=== PATIENT | female | born 1940 | race Caucasian/White ===

== ENCOUNTER 2020-05-19 08:50 | Outpatient (CLI) | payer MEDICARE | END 2020-05-19 08:51 | disposition home or self-care (01) | LOC: CSHWCC 08:50 | PROVIDERS: ATTEND Nurse Practitioner Family | DX: L97.822 Non-pressure chronic ulcer of other part of left lower leg with fat layer exposed (principal); L97.823 Non-pressure chronic ulcer of other part of left lower leg with necrosis of muscle; R60.0 Localized edema; L59.8 Other specified disorders of the skin and subcutaneous tissue related to radiation; E78.2 Mixed hyperlipidemia; F33.9 Major depressive disorder, recurrent, unspecified; I10 Essential (primary) hypertension; L08.89 Other specified local infections of the skin and subcutaneous tissue; B96.89 Other specified bacterial agents as the cause of diseases classified elsewhere; Y84.2 Radiological procedure and radiotherapy as the cause of abnormal reaction of the patient, or of later complication, without mention of misadventure at the time of the procedure; Z85.828 Personal history of other malignant neoplasm of skin | CPT/HCPCS: 29581; 97605 ==

== ENCOUNTER 2020-05-21 10:19 | Outpatient (CLI) | payer MEDICARE | END 2020-05-21 10:20 | disposition home or self-care (01) | LOC: CSHWCC 10:19 | PROVIDERS: ATTEND Nurse Practitioner Family | DX: L97.822 Non-pressure chronic ulcer of other part of left lower leg with fat layer exposed (principal); L97.823 Non-pressure chronic ulcer of other part of left lower leg with necrosis of muscle; R60.0 Localized edema; E78.2 Mixed hyperlipidemia; F33.9 Major depressive disorder, recurrent, unspecified; I10 Essential (primary) hypertension; L08.89 Other specified local infections of the skin and subcutaneous tissue; B96.89 Other specified bacterial agents as the cause of diseases classified elsewhere; L59.8 Other specified disorders of the skin and subcutaneous tissue related to radiation; Y84.2 Radiological procedure and radiotherapy as the cause of abnormal reaction of the patient, or of later complication, without mention of misadventure at the time of the procedure; Z85.828 Personal history of other malignant neoplasm of skin | CPT/HCPCS: 29581; 97605; 99213; G0463 ==

== ENCOUNTER 2020-05-25 14:35 | Outpatient (CLI) | payer MEDICARE | END 2020-05-25 14:36 | disposition home or self-care (01) | LOC: CSHWCC 14:35 | PROVIDERS: ATTEND Nurse Practitioner Family | DX: L97.822 Non-pressure chronic ulcer of other part of left lower leg with fat layer exposed (principal); L97.823 Non-pressure chronic ulcer of other part of left lower leg with necrosis of muscle; R60.0 Localized edema; E78.2 Mixed hyperlipidemia; F33.9 Major depressive disorder, recurrent, unspecified; I10 Essential (primary) hypertension; L08.89 Other specified local infections of the skin and subcutaneous tissue; B96.89 Other specified bacterial agents as the cause of diseases classified elsewhere; T66.XXXA Radiation sickness, unspecified, initial encounter; Y84.2 Radiological procedure and radiotherapy as the cause of abnormal reaction of the patient, or of later complication, without mention of misadventure at the time of the procedure; Z85.828 Personal history of other malignant neoplasm of skin | CPT/HCPCS: 29581; 99213; G0463 ==

== ENCOUNTER 2020-05-26 10:47 | Outpatient (CLI) | payer MEDICARE | END 2020-05-26 10:48 | disposition home or self-care (01) | LOC: CSHWCC 10:47 | PROVIDERS: ATTEND Nurse Practitioner Family | DX: L97.823 Non-pressure chronic ulcer of other part of left lower leg with necrosis of muscle (principal); R60.0 Localized edema; L59.8 Other specified disorders of the skin and subcutaneous tissue related to radiation; E78.2 Mixed hyperlipidemia; F33.9 Major depressive disorder, recurrent, unspecified; I10 Essential (primary) hypertension; Y84.2 Radiological procedure and radiotherapy as the cause of abnormal reaction of the patient, or of later complication, without mention of misadventure at the time of the procedure; Z85.828 Personal history of other malignant neoplasm of skin | CPT/HCPCS: 29581; 99213; G0463 ==

== ENCOUNTER 2020-05-27 15:11 | Outpatient (CLI) | payer MEDICARE | END 2020-05-27 15:12 | disposition home or self-care (01) | LOC: CSHWCC 15:11 | PROVIDERS: ATTEND Nurse Practitioner Family | DX: L97.823 Non-pressure chronic ulcer of other part of left lower leg with necrosis of muscle (principal); L59.8 Other specified disorders of the skin and subcutaneous tissue related to radiation; R60.0 Localized edema; E78.2 Mixed hyperlipidemia; F33.9 Major depressive disorder, recurrent, unspecified; I10 Essential (primary) hypertension; Y84.2 Radiological procedure and radiotherapy as the cause of abnormal reaction of the patient, or of later complication, without mention of misadventure at the time of the procedure; Z85.828 Personal history of other malignant neoplasm of skin | CPT/HCPCS: 29581; 99213; G0463 ==

== ENCOUNTER 2020-05-28 08:54 | Outpatient (CLI) | payer MEDICARE | END 2020-05-28 08:55 | disposition home or self-care (01) | LOC: CSHWCC 08:54 | PROVIDERS: ATTEND Nurse Practitioner Family | DX: L97.822 Non-pressure chronic ulcer of other part of left lower leg with fat layer exposed (principal); L97.823 Non-pressure chronic ulcer of other part of left lower leg with necrosis of muscle; R60.0 Localized edema; E78.2 Mixed hyperlipidemia; F33.9 Major depressive disorder, recurrent, unspecified; I10 Essential (primary) hypertension; L08.89 Other specified local infections of the skin and subcutaneous tissue; B96.89 Other specified bacterial agents as the cause of diseases classified elsewhere; L56.8 Other specified acute skin changes due to ultraviolet radiation; Y84.2 Radiological procedure and radiotherapy as the cause of abnormal reaction of the patient, or of later complication, without mention of misadventure at the time of the procedure; Z85.828 Personal history of other malignant neoplasm of skin | CPT/HCPCS: 29581; 97139; G0463; 99213 ==

== ENCOUNTER 2020-05-31 12:22 | Outpatient (CLI) | payer MEDICARE | END 2020-05-31 12:23 | disposition home or self-care (01) | LOC: CSHWCC 12:22 | PROVIDERS: ATTEND Nurse Practitioner Family | DX: L97.823 Non-pressure chronic ulcer of other part of left lower leg with necrosis of muscle (principal); E78.2 Mixed hyperlipidemia; F33.9 Major depressive disorder, recurrent, unspecified; I10 Essential (primary) hypertension; L59.8 Other specified disorders of the skin and subcutaneous tissue related to radiation; R60.0 Localized edema; Y84.2 Radiological procedure and radiotherapy as the cause of abnormal reaction of the patient, or of later complication, without mention of misadventure at the time of the procedure; Z85.828 Personal history of other malignant neoplasm of skin | CPT/HCPCS: 11042; 29581; 97139; G0463; 99213 ==

== ENCOUNTER 2020-06-03 11:55 | Outpatient (CLI) | payer MEDICARE | END 2020-06-03 11:56 | disposition home or self-care (01) | LOC: CSHWCC 11:55 | PROVIDERS: ATTEND Nurse Practitioner Family | DX: L97.823 Non-pressure chronic ulcer of other part of left lower leg with necrosis of muscle (principal); E78.2 Mixed hyperlipidemia; F33.9 Major depressive disorder, recurrent, unspecified; L59.8 Other specified disorders of the skin and subcutaneous tissue related to radiation; I10 Essential (primary) hypertension; R60.0 Localized edema; Y84.2 Radiological procedure and radiotherapy as the cause of abnormal reaction of the patient, or of later complication, without mention of misadventure at the time of the procedure; Z85.828 Personal history of other malignant neoplasm of skin | CPT/HCPCS: 29581; 99213; G0463 ==

== ENCOUNTER 2020-06-08 10:51 | Outpatient (CLI) | payer MEDICARE | END 2020-06-08 10:52 | disposition home or self-care (01) | LOC: CSHWCC 10:51 | PROVIDERS: ATTEND Nurse Practitioner Family | DX: L97.823 Non-pressure chronic ulcer of other part of left lower leg with necrosis of muscle (principal); R60.0 Localized edema; L59.8 Other specified disorders of the skin and subcutaneous tissue related to radiation; E78.2 Mixed hyperlipidemia; F33.9 Major depressive disorder, recurrent, unspecified; I10 Essential (primary) hypertension; Y84.2 Radiological procedure and radiotherapy as the cause of abnormal reaction of the patient, or of later complication, without mention of misadventure at the time of the procedure; Z85.828 Personal history of other malignant neoplasm of skin | CPT/HCPCS: 29581; 99213; G0463 ==

== ENCOUNTER 2020-06-11 10:47 | Outpatient (CLI) | payer MEDICARE | END 2020-06-11 10:48 | disposition home or self-care (01) | LOC: CSHWCC 10:47 | PROVIDERS: ATTEND Nurse Practitioner Family | DX: L97.822 Non-pressure chronic ulcer of other part of left lower leg with fat layer exposed (principal); L97.823 Non-pressure chronic ulcer of other part of left lower leg with necrosis of muscle; R60.0 Localized edema; E78.2 Mixed hyperlipidemia; F33.9 Major depressive disorder, recurrent, unspecified; I10 Essential (primary) hypertension; L08.89 Other specified local infections of the skin and subcutaneous tissue; B96.89 Other specified bacterial agents as the cause of diseases classified elsewhere; L59.8 Other specified disorders of the skin and subcutaneous tissue related to radiation; Y84.2 Radiological procedure and radiotherapy as the cause of abnormal reaction of the patient, or of later complication, without mention of misadventure at the time of the procedure; Z85.828 Personal history of other malignant neoplasm of skin | CPT/HCPCS: 29581; 97139; G0463; 99213 ==

== ENCOUNTER 2020-06-15 08:43 | Outpatient (CLI) | payer MEDICARE | END 2020-06-15 08:44 | disposition home or self-care (01) | LOC: CSHWCC 08:43 | PROVIDERS: ATTEND Nurse Practitioner Family | DX: L97.822 Non-pressure chronic ulcer of other part of left lower leg with fat layer exposed (principal); L97.823 Non-pressure chronic ulcer of other part of left lower leg with necrosis of muscle; R60.0 Localized edema; E78.2 Mixed hyperlipidemia; F33.9 Major depressive disorder, recurrent, unspecified; I10 Essential (primary) hypertension; L08.89 Other specified local infections of the skin and subcutaneous tissue; B96.89 Other specified bacterial agents as the cause of diseases classified elsewhere; L59.8 Other specified disorders of the skin and subcutaneous tissue related to radiation; Y84.2 Radiological procedure and radiotherapy as the cause of abnormal reaction of the patient, or of later complication, without mention of misadventure at the time of the procedure; Z85.828 Personal history of other malignant neoplasm of skin | CPT/HCPCS: 11042; 11045; 29581; 97139; G0463; 99213 ==

== ENCOUNTER 2020-06-18 09:24 | Outpatient (CLI) | payer MEDICARE | END 2020-06-18 09:25 | disposition home or self-care (01) | LOC: CSHWCC 09:24 | PROVIDERS: ATTEND Nurse Practitioner Family | DX: L97.822 Non-pressure chronic ulcer of other part of left lower leg with fat layer exposed (principal); L97.823 Non-pressure chronic ulcer of other part of left lower leg with necrosis of muscle; R60.0 Localized edema; E78.2 Mixed hyperlipidemia; F33.9 Major depressive disorder, recurrent, unspecified; I10 Essential (primary) hypertension; L08.89 Other specified local infections of the skin and subcutaneous tissue; B96.89 Other specified bacterial agents as the cause of diseases classified elsewhere; L59.8 Other specified disorders of the skin and subcutaneous tissue related to radiation; Y84.2 Radiological procedure and radiotherapy as the cause of abnormal reaction of the patient, or of later complication, without mention of misadventure at the time of the procedure; Z85.828 Personal history of other malignant neoplasm of skin | CPT/HCPCS: 29581; 97139; G0463; 99213 ==

== ENCOUNTER 2020-06-22 11:18 | Outpatient (CLI) | payer MEDICARE | END 2020-06-22 11:19 | disposition home or self-care (01) | LOC: CSHWCC 11:18 | PROVIDERS: ATTEND Nurse Practitioner Family | DX: L97.822 Non-pressure chronic ulcer of other part of left lower leg with fat layer exposed (principal); L97.823 Non-pressure chronic ulcer of other part of left lower leg with necrosis of muscle; R60.0 Localized edema; E78.2 Mixed hyperlipidemia; F33.9 Major depressive disorder, recurrent, unspecified; I10 Essential (primary) hypertension; L08.89 Other specified local infections of the skin and subcutaneous tissue; B96.89 Other specified bacterial agents as the cause of diseases classified elsewhere; L59.8 Other specified disorders of the skin and subcutaneous tissue related to radiation; Y84.2 Radiological procedure and radiotherapy as the cause of abnormal reaction of the patient, or of later complication, without mention of misadventure at the time of the procedure; Z85.828 Personal history of other malignant neoplasm of skin | CPT/HCPCS: 11042; 11045; 29581; 97139; G0463; 99213 ==

== ENCOUNTER 2020-06-25 11:26 | Outpatient (CLI) | payer MEDICARE | END 2020-06-25 11:27 | disposition home or self-care (01) | LOC: CSHWCC 11:26 | PROVIDERS: ATTEND Nurse Practitioner Family | DX: T66.XXXA Radiation sickness, unspecified, initial encounter (principal); E78.2 Mixed hyperlipidemia; F33.9 Major depressive disorder, recurrent, unspecified; I10 Essential (primary) hypertension; L59.8 Other specified disorders of the skin and subcutaneous tissue related to radiation; L97.823 Non-pressure chronic ulcer of other part of left lower leg with necrosis of muscle; Y84.2 Radiological procedure and radiotherapy as the cause of abnormal reaction of the patient, or of later complication, without mention of misadventure at the time of the procedure; Z85.828 Personal history of other malignant neoplasm of skin | CPT/HCPCS: 29581; 97139; G0463; 99213 ==

== ENCOUNTER 2020-06-28 14:03 | Outpatient (CLI) | payer MEDICARE | END 2020-06-28 14:04 | disposition home or self-care (01) | LOC: CSHWCC 14:03 | PROVIDERS: ATTEND Nurse Practitioner Family | DX: L97.823 Non-pressure chronic ulcer of other part of left lower leg with necrosis of muscle (principal); E78.2 Mixed hyperlipidemia; F33.9 Major depressive disorder, recurrent, unspecified; L59.8 Other specified disorders of the skin and subcutaneous tissue related to radiation; R60.0 Localized edema; I10 Essential (primary) hypertension; Y84.2 Radiological procedure and radiotherapy as the cause of abnormal reaction of the patient, or of later complication, without mention of misadventure at the time of the procedure; Z85.828 Personal history of other malignant neoplasm of skin | CPT/HCPCS: 11042; 29581; 99213; G0463 ==

== ENCOUNTER 2020-07-01 11:54 | Outpatient (CLI) | payer MEDICARE | END 2020-07-01 11:55 | disposition home or self-care (01) | LOC: CSHWCC 11:54 | PROVIDERS: ATTEND Nurse Practitioner Family | DX: L97.822 Non-pressure chronic ulcer of other part of left lower leg with fat layer exposed (principal); L97.823 Non-pressure chronic ulcer of other part of left lower leg with necrosis of muscle; R60.0 Localized edema; E78.2 Mixed hyperlipidemia; F33.9 Major depressive disorder, recurrent, unspecified; I10 Essential (primary) hypertension; L08.89 Other specified local infections of the skin and subcutaneous tissue; B96.89 Other specified bacterial agents as the cause of diseases classified elsewhere; L59.8 Other specified disorders of the skin and subcutaneous tissue related to radiation; Y84.2 Radiological procedure and radiotherapy as the cause of abnormal reaction of the patient, or of later complication, without mention of misadventure at the time of the procedure; Z85.828 Personal history of other malignant neoplasm of skin | CPT/HCPCS: 29581; 99212; G0463 ==

== ENCOUNTER 2020-07-06 11:08 | Outpatient (CLI) | payer MEDICARE | END 2020-07-06 11:09 | disposition home or self-care (01) | LOC: CSHWCC 11:08 | PROVIDERS: ATTEND Nurse Practitioner Family | DX: L97.823 Non-pressure chronic ulcer of other part of left lower leg with necrosis of muscle (principal); E78.2 Mixed hyperlipidemia; F33.9 Major depressive disorder, recurrent, unspecified; I10 Essential (primary) hypertension; L59.8 Other specified disorders of the skin and subcutaneous tissue related to radiation; R60.0 Localized edema; Y84.2 Radiological procedure and radiotherapy as the cause of abnormal reaction of the patient, or of later complication, without mention of misadventure at the time of the procedure; Z85.828 Personal history of other malignant neoplasm of skin | CPT/HCPCS: 11042; 29581; 99213; G0463 ==

== ENCOUNTER 2020-07-09 10:51 | Outpatient (CLI) | payer MEDICARE | END 2020-07-09 10:52 | disposition home or self-care (01) | LOC: CSHWCC 10:51 | PROVIDERS: ATTEND Nurse Practitioner Family | DX: L97.822 Non-pressure chronic ulcer of other part of left lower leg with fat layer exposed (principal); L97.823 Non-pressure chronic ulcer of other part of left lower leg with necrosis of muscle; R60.0 Localized edema; E78.2 Mixed hyperlipidemia; F33.9 Major depressive disorder, recurrent, unspecified; I10 Essential (primary) hypertension; L08.89 Other specified local infections of the skin and subcutaneous tissue; B96.89 Other specified bacterial agents as the cause of diseases classified elsewhere; L59.8 Other specified disorders of the skin and subcutaneous tissue related to radiation; Y84.2 Radiological procedure and radiotherapy as the cause of abnormal reaction of the patient, or of later complication, without mention of misadventure at the time of the procedure; Z85.828 Personal history of other malignant neoplasm of skin | CPT/HCPCS: 29581; 97139; G0463; 99213 ==

== ENCOUNTER 2020-07-13 10:41 | Outpatient (CLI) | payer MEDICARE | END 2020-07-13 10:42 | disposition home or self-care (01) | LOC: CSHWCC 10:41 | PROVIDERS: ATTEND Nurse Practitioner Family | DX: L97.822 Non-pressure chronic ulcer of other part of left lower leg with fat layer exposed (principal); L97.823 Non-pressure chronic ulcer of other part of left lower leg with necrosis of muscle; R60.0 Localized edema; E78.2 Mixed hyperlipidemia; F33.9 Major depressive disorder, recurrent, unspecified; I10 Essential (primary) hypertension; L08.89 Other specified local infections of the skin and subcutaneous tissue; B96.89 Other specified bacterial agents as the cause of diseases classified elsewhere; L59.8 Other specified disorders of the skin and subcutaneous tissue related to radiation; T66.XXXA Radiation sickness, unspecified, initial encounter; Y84.2 Radiological procedure and radiotherapy as the cause of abnormal reaction of the patient, or of later complication, without mention of misadventure at the time of the procedure; Z85.828 Personal history of other malignant neoplasm of skin | CPT/HCPCS: 29581 ==

== ENCOUNTER 2020-07-15 10:49 | Outpatient (CLI) | payer MEDICARE | END 2020-07-15 10:50 | disposition home or self-care (01) | LOC: CSHWCC 10:49 | PROVIDERS: ATTEND Nurse Practitioner Family | DX: L97.823 Non-pressure chronic ulcer of other part of left lower leg with necrosis of muscle (principal); L59.8 Other specified disorders of the skin and subcutaneous tissue related to radiation; R60.0 Localized edema; E78.2 Mixed hyperlipidemia; F33.9 Major depressive disorder, recurrent, unspecified; I10 Essential (primary) hypertension; Y84.2 Radiological procedure and radiotherapy as the cause of abnormal reaction of the patient, or of later complication, without mention of misadventure at the time of the procedure; Z85.828 Personal history of other malignant neoplasm of skin | CPT/HCPCS: 29581; 99213; G0463 ==

== ENCOUNTER 2020-07-20 16:36 | Outpatient (CLI) | payer MEDICARE | END 2020-07-20 16:37 | disposition home or self-care (01) | LOC: CSHWCC 16:36 | PROVIDERS: ATTEND Nurse Practitioner Family | DX: L97.822 Non-pressure chronic ulcer of other part of left lower leg with fat layer exposed (principal); L97.823 Non-pressure chronic ulcer of other part of left lower leg with necrosis of muscle; R60.0 Localized edema; E78.2 Mixed hyperlipidemia; F33.9 Major depressive disorder, recurrent, unspecified; L08.89 Other specified local infections of the skin and subcutaneous tissue; B96.89 Other specified bacterial agents as the cause of diseases classified elsewhere; L59.8 Other specified disorders of the skin and subcutaneous tissue related to radiation; Y84.2 Radiological procedure and radiotherapy as the cause of abnormal reaction of the patient, or of later complication, without mention of misadventure at the time of the procedure; Z85.828 Personal history of other malignant neoplasm of skin | CPT/HCPCS: 29581; 99213; G0463 ==

== ENCOUNTER 2020-07-23 11:26 | Outpatient (CLI) | payer MEDICARE | END 2020-07-23 11:27 | disposition home or self-care (01) | LOC: CSHWCC 11:26 | PROVIDERS: ATTEND Nurse Practitioner Family | DX: L97.823 Non-pressure chronic ulcer of other part of left lower leg with necrosis of muscle (principal); E78.2 Mixed hyperlipidemia; F33.9 Major depressive disorder, recurrent, unspecified; I10 Essential (primary) hypertension; T66.XXXD Radiation sickness, unspecified, subsequent encounter; R60.0 Localized edema; Y84.2 Radiological procedure and radiotherapy as the cause of abnormal reaction of the patient, or of later complication, without mention of misadventure at the time of the procedure; Z85.828 Personal history of other malignant neoplasm of skin ==

== ENCOUNTER 2020-08-13 11:05 | Outpatient (CLI) | payer MEDICARE | END 2020-08-13 11:06 | disposition home or self-care (01) | LOC: CSHWCC 11:05 | PROVIDERS: ATTEND Nurse Practitioner Family | DX: L97.822 Non-pressure chronic ulcer of other part of left lower leg with fat layer exposed (principal); L97.823 Non-pressure chronic ulcer of other part of left lower leg with necrosis of muscle; R60.0 Localized edema; E78.2 Mixed hyperlipidemia; F33.9 Major depressive disorder, recurrent, unspecified; I10 Essential (primary) hypertension; L08.89 Other specified local infections of the skin and subcutaneous tissue; B96.89 Other specified bacterial agents as the cause of diseases classified elsewhere; L59.8 Other specified disorders of the skin and subcutaneous tissue related to radiation; Y84.2 Radiological procedure and radiotherapy as the cause of abnormal reaction of the patient, or of later complication, without mention of misadventure at the time of the procedure; Z85.828 Personal history of other malignant neoplasm of skin ==

== ENCOUNTER 2020-10-25 10:05 | Outpatient (CLI) | payer MEDICARE | END 2020-10-25 10:06 | disposition home or self-care (01) | LOC: CSHWCC 10:05 | PROVIDERS: ATTEND Nurse Practitioner Family | DX: L97.823 Non-pressure chronic ulcer of other part of left lower leg with necrosis of muscle (principal); E78.2 Mixed hyperlipidemia; F33.9 Major depressive disorder, recurrent, unspecified; I10 Essential (primary) hypertension; L59.8 Other specified disorders of the skin and subcutaneous tissue related to radiation; R60.0 Localized edema; Z85.828 Personal history of other malignant neoplasm of skin; Y84.2 Radiological procedure and radiotherapy as the cause of abnormal reaction of the patient, or of later complication, without mention of misadventure at the time of the procedure | CPT/HCPCS: 11042; 99213; G0463 ==

== ENCOUNTER 2020-12-23 08:58 | Outpatient (CLI) | payer MEDICARE, OTHER | END 2020-12-23 08:59 | disposition home or self-care (01) | LOC: CSHWCC 08:58 | PROVIDERS: ATTEND Nurse Practitioner Family | DX: L97.823 Non-pressure chronic ulcer of other part of left lower leg with necrosis of muscle (principal); R60.0 Localized edema; E78.2 Mixed hyperlipidemia; F33.9 Major depressive disorder, recurrent, unspecified; L08.89 Other specified local infections of the skin and subcutaneous tissue; B96.89 Other specified bacterial agents as the cause of diseases classified elsewhere; L59.8 Other specified disorders of the skin and subcutaneous tissue related to radiation; M12.9 Arthropathy, unspecified; Y84.2 Radiological procedure and radiotherapy as the cause of abnormal reaction of the patient, or of later complication, without mention of misadventure at the time of the procedure; Z85.828 Personal history of other malignant neoplasm of skin | CPT/HCPCS: 97139; G0463; 99213 ==

== ENCOUNTER 2020-12-27 08:53 | Outpatient (CLI) | payer MEDICARE, OTHER | END 2020-12-27 08:54 | disposition home or self-care (01) | LOC: CSHWCC 08:53 | PROVIDERS: ATTEND Nurse Practitioner Family | DX: L97.823 Non-pressure chronic ulcer of other part of left lower leg with necrosis of muscle (principal); E78.2 Mixed hyperlipidemia; R60.0 Localized edema; F33.9 Major depressive disorder, recurrent, unspecified; L59.8 Other specified disorders of the skin and subcutaneous tissue related to radiation; I10 Essential (primary) hypertension; Y84.2 Radiological procedure and radiotherapy as the cause of abnormal reaction of the patient, or of later complication, without mention of misadventure at the time of the procedure; Z85.828 Personal history of other malignant neoplasm of skin | CPT/HCPCS: 99213; G0463 ==

== ENCOUNTER 2020-12-30 08:44 | Outpatient (CLI) | payer MEDICARE, OTHER | END 2020-12-30 08:45 | disposition home or self-care (01) | LOC: CSHWCC 08:44 | PROVIDERS: ATTEND Nurse Practitioner Family | DX: L97.823 Non-pressure chronic ulcer of other part of left lower leg with necrosis of muscle (principal); E78.2 Mixed hyperlipidemia; R60.0 Localized edema; F33.9 Major depressive disorder, recurrent, unspecified; L59.8 Other specified disorders of the skin and subcutaneous tissue related to radiation; I10 Essential (primary) hypertension; Y84.2 Radiological procedure and radiotherapy as the cause of abnormal reaction of the patient, or of later complication, without mention of misadventure at the time of the procedure; Z85.828 Personal history of other malignant neoplasm of skin | CPT/HCPCS: 99212; G0463 ==

== ENCOUNTER 2021-01-03 10:23 | Outpatient (CLI) | payer MEDICARE, OTHER | END 2021-01-03 10:24 | disposition home or self-care (01) | LOC: CSHWCC 10:23 | PROVIDERS: ATTEND Nurse Practitioner Family | DX: L97.823 Non-pressure chronic ulcer of other part of left lower leg with necrosis of muscle (principal); R60.0 Localized edema; L59.8 Other specified disorders of the skin and subcutaneous tissue related to radiation; E78.2 Mixed hyperlipidemia; F33.9 Major depressive disorder, recurrent, unspecified; L08.89 Other specified local infections of the skin and subcutaneous tissue; B96.89 Other specified bacterial agents as the cause of diseases classified elsewhere; M12.9 Arthropathy, unspecified; Y84.2 Radiological procedure and radiotherapy as the cause of abnormal reaction of the patient, or of later complication, without mention of misadventure at the time of the procedure; Z85.828 Personal history of other malignant neoplasm of skin | CPT/HCPCS: 11042; 97139; G0463; 99213 ==

== ENCOUNTER 2021-01-06 09:18 | Outpatient (CLI) | payer MEDICARE, OTHER | END 2021-01-06 09:19 | disposition home or self-care (01) | LOC: CSHWCC 09:18 | PROVIDERS: ATTEND Nurse Practitioner Family | DX: L97.823 Non-pressure chronic ulcer of other part of left lower leg with necrosis of muscle (principal); L59.8 Other specified disorders of the skin and subcutaneous tissue related to radiation; E78.2 Mixed hyperlipidemia; F33.9 Major depressive disorder, recurrent, unspecified; L08.89 Other specified local infections of the skin and subcutaneous tissue; B96.89 Other specified bacterial agents as the cause of diseases classified elsewhere; I10 Essential (primary) hypertension; M12.9 Arthropathy, unspecified; R60.0 Localized edema; Y84.2 Radiological procedure and radiotherapy as the cause of abnormal reaction of the patient, or of later complication, without mention of misadventure at the time of the procedure; Z85.828 Personal history of other malignant neoplasm of skin ==

== ENCOUNTER 2021-01-10 08:50 | Outpatient (CLI) | payer MEDICARE, OTHER | END 2021-01-10 08:51 | disposition home or self-care (01) | LOC: CSHWCC 08:50 | PROVIDERS: ATTEND Nurse Practitioner Family | DX: L97.823 Non-pressure chronic ulcer of other part of left lower leg with necrosis of muscle (principal); R60.0 Localized edema; L59.8 Other specified disorders of the skin and subcutaneous tissue related to radiation; E78.2 Mixed hyperlipidemia; F33.9 Major depressive disorder, recurrent, unspecified; I10 Essential (primary) hypertension; Y84.2 Radiological procedure and radiotherapy as the cause of abnormal reaction of the patient, or of later complication, without mention of misadventure at the time of the procedure; Z85.828 Personal history of other malignant neoplasm of skin | CPT/HCPCS: 11042; 99213; G0463 ==

== ENCOUNTER 2021-01-13 10:05 | Outpatient (CLI) | payer MEDICARE, OTHER | END 2021-01-13 10:06 | disposition home or self-care (01) | LOC: CSHWCC 10:05 | PROVIDERS: ATTEND Nurse Practitioner Family | DX: L97.823 Non-pressure chronic ulcer of other part of left lower leg with necrosis of muscle (principal); R60.0 Localized edema; E78.2 Mixed hyperlipidemia; F33.9 Major depressive disorder, recurrent, unspecified; L08.89 Other specified local infections of the skin and subcutaneous tissue; B96.89 Other specified bacterial agents as the cause of diseases classified elsewhere; L59.8 Other specified disorders of the skin and subcutaneous tissue related to radiation; M12.9 Arthropathy, unspecified; Y84.2 Radiological procedure and radiotherapy as the cause of abnormal reaction of the patient, or of later complication, without mention of misadventure at the time of the procedure; Z85.828 Personal history of other malignant neoplasm of skin | CPT/HCPCS: 97139; G0463; 99212 ==

== ENCOUNTER 2021-01-17 09:31 | Outpatient (CLI) | payer MEDICARE, OTHER | END 2021-01-17 09:32 | disposition home or self-care (01) | LOC: CSHWCC 09:31 | PROVIDERS: ATTEND Nurse Practitioner Family | DX: L97.823 Non-pressure chronic ulcer of other part of left lower leg with necrosis of muscle (principal); L08.89 Other specified local infections of the skin and subcutaneous tissue; L59.8 Other specified disorders of the skin and subcutaneous tissue related to radiation; E78.2 Mixed hyperlipidemia; F33.9 Major depressive disorder, recurrent, unspecified; I10 Essential (primary) hypertension; B96.89 Other specified bacterial agents as the cause of diseases classified elsewhere; M12.9 Arthropathy, unspecified; R60.0 Localized edema; Y84.2 Radiological procedure and radiotherapy as the cause of abnormal reaction of the patient, or of later complication, without mention of misadventure at the time of the procedure; Z85.828 Personal history of other malignant neoplasm of skin | CPT/HCPCS: 11042; 97139; G0463; 99213 ==

== ENCOUNTER 2021-01-20 08:30 | Outpatient (CLI) | payer MEDICARE | END 2021-01-20 08:31 | disposition home or self-care (01) | LOC: CSHWCC 08:30 | PROVIDERS: ATTEND Nurse Practitioner Family | DX: L97.823 Non-pressure chronic ulcer of other part of left lower leg with necrosis of muscle (principal); L59.8 Other specified disorders of the skin and subcutaneous tissue related to radiation; E78.2 Mixed hyperlipidemia; F33.9 Major depressive disorder, recurrent, unspecified; I10 Essential (primary) hypertension; R60.0 Localized edema; Y84.2 Radiological procedure and radiotherapy as the cause of abnormal reaction of the patient, or of later complication, without mention of misadventure at the time of the procedure; Z85.828 Personal history of other malignant neoplasm of skin ==

== ENCOUNTER 2021-01-24 10:14 | Outpatient (CLI) | payer MEDICARE | END 2021-01-24 10:15 | disposition home or self-care (01) | LOC: CSHWCC 10:14 | PROVIDERS: ATTEND Nurse Practitioner Family | DX: L97.823 Non-pressure chronic ulcer of other part of left lower leg with necrosis of muscle (principal); R60.0 Localized edema; L59.8 Other specified disorders of the skin and subcutaneous tissue related to radiation; L08.89 Other specified local infections of the skin and subcutaneous tissue; B96.89 Other specified bacterial agents as the cause of diseases classified elsewhere; E78.2 Mixed hyperlipidemia; F33.9 Major depressive disorder, recurrent, unspecified; I10 Essential (primary) hypertension; M12.9 Arthropathy, unspecified; Y84.2 Radiological procedure and radiotherapy as the cause of abnormal reaction of the patient, or of later complication, without mention of misadventure at the time of the procedure; Z85.828 Personal history of other malignant neoplasm of skin | CPT/HCPCS: 97139; G0463; 99213 ==

== ENCOUNTER 2021-01-28 07:58 | Outpatient (CLI) | payer MEDICARE | END 2021-01-28 07:59 | disposition home or self-care (01) | LOC: CSHWCC 07:58 | PROVIDERS: ATTEND Nurse Practitioner Family | DX: L97.823 Non-pressure chronic ulcer of other part of left lower leg with necrosis of muscle (principal); R60.0 Localized edema; L59.8 Other specified disorders of the skin and subcutaneous tissue related to radiation; F33.9 Major depressive disorder, recurrent, unspecified; E78.2 Mixed hyperlipidemia; I10 Essential (primary) hypertension; Y84.2 Radiological procedure and radiotherapy as the cause of abnormal reaction of the patient, or of later complication, without mention of misadventure at the time of the procedure; Z85.828 Personal history of other malignant neoplasm of skin ==

== ENCOUNTER 2021-02-07 09:02 | Outpatient (CLI) | payer MEDICARE | END 2021-02-07 09:03 | disposition home or self-care (01) | LOC: CSHWCC 09:02 | PROVIDERS: ATTEND Nurse Practitioner Family | DX: L97.823 Non-pressure chronic ulcer of other part of left lower leg with necrosis of muscle (principal); E78.2 Mixed hyperlipidemia; F33.9 Major depressive disorder, recurrent, unspecified; I10 Essential (primary) hypertension; L08.89 Other specified local infections of the skin and subcutaneous tissue; B96.89 Other specified bacterial agents as the cause of diseases classified elsewhere; L59.8 Other specified disorders of the skin and subcutaneous tissue related to radiation; M12.9 Arthropathy, unspecified; R60.0 Localized edema; Y84.2 Radiological procedure and radiotherapy as the cause of abnormal reaction of the patient, or of later complication, without mention of misadventure at the time of the procedure; Z85.828 Personal history of other malignant neoplasm of skin ==

== ENCOUNTER 2021-02-14 13:01 | Outpatient (CLI) | payer MEDICARE | END 2021-02-14 13:02 | disposition home or self-care (01) | LOC: CSHWCC 13:01 | PROVIDERS: ATTEND Nurse Practitioner Family | DX: L97.823 Non-pressure chronic ulcer of other part of left lower leg with necrosis of muscle (principal); R60.0 Localized edema; L59.8 Other specified disorders of the skin and subcutaneous tissue related to radiation; E78.2 Mixed hyperlipidemia; F33.9 Major depressive disorder, recurrent, unspecified; I10 Essential (primary) hypertension; M12.9 Arthropathy, unspecified; L08.89 Other specified local infections of the skin and subcutaneous tissue; B96.89 Other specified bacterial agents as the cause of diseases classified elsewhere; Y84.2 Radiological procedure and radiotherapy as the cause of abnormal reaction of the patient, or of later complication, without mention of misadventure at the time of the procedure; Z85.828 Personal history of other malignant neoplasm of skin | CPT/HCPCS: 99213; G0463 ==

== ENCOUNTER 2021-02-21 11:59 | Outpatient (CLI) | payer MEDICARE | END 2021-02-21 12:00 | disposition home or self-care (01) | LOC: CSHWCC 11:59 | PROVIDERS: ATTEND Nurse Practitioner Family | DX: L97.823 Non-pressure chronic ulcer of other part of left lower leg with necrosis of muscle (principal); E78.2 Mixed hyperlipidemia; F33.9 Major depressive disorder, recurrent, unspecified; I10 Essential (primary) hypertension; L08.89 Other specified local infections of the skin and subcutaneous tissue; B96.89 Other specified bacterial agents as the cause of diseases classified elsewhere; L59.8 Other specified disorders of the skin and subcutaneous tissue related to radiation; M12.9 Arthropathy, unspecified; R60.0 Localized edema; Y84.2 Radiological procedure and radiotherapy as the cause of abnormal reaction of the patient, or of later complication, without mention of misadventure at the time of the procedure; Z85.828 Personal history of other malignant neoplasm of skin ==

== ENCOUNTER 2021-02-28 11:46 | Outpatient (CLI) | payer MEDICARE | END 2021-02-28 11:47 | disposition home or self-care (01) | LOC: CSHWCC 11:46 | PROVIDERS: ATTEND Nurse Practitioner Family | DX: L97.823 Non-pressure chronic ulcer of other part of left lower leg with necrosis of muscle (principal); R60.0 Localized edema; L59.8 Other specified disorders of the skin and subcutaneous tissue related to radiation; L08.89 Other specified local infections of the skin and subcutaneous tissue; B96.89 Other specified bacterial agents as the cause of diseases classified elsewhere; E78.2 Mixed hyperlipidemia; F33.9 Major depressive disorder, recurrent, unspecified; I10 Essential (primary) hypertension; M12.9 Arthropathy, unspecified; Y84.2 Radiological procedure and radiotherapy as the cause of abnormal reaction of the patient, or of later complication, without mention of misadventure at the time of the procedure; Z85.828 Personal history of other malignant neoplasm of skin | CPT/HCPCS: 97139; G0463; 99213 ==

== ENCOUNTER 2021-03-08 09:12 | Outpatient (CLI) | payer MEDICARE | END 2021-03-08 09:13 | disposition home or self-care (01) | LOC: CSHWCC 09:12 | PROVIDERS: ATTEND Nurse Practitioner Family | DX: L97.823 Non-pressure chronic ulcer of other part of left lower leg with necrosis of muscle (principal); L59.8 Other specified disorders of the skin and subcutaneous tissue related to radiation; E78.2 Mixed hyperlipidemia; F33.9 Major depressive disorder, recurrent, unspecified; I10 Essential (primary) hypertension; L08.89 Other specified local infections of the skin and subcutaneous tissue; B96.89 Other specified bacterial agents as the cause of diseases classified elsewhere; M12.9 Arthropathy, unspecified; R60.0 Localized edema; Y84.2 Radiological procedure and radiotherapy as the cause of abnormal reaction of the patient, or of later complication, without mention of misadventure at the time of the procedure; Z85.828 Personal history of other malignant neoplasm of skin ==

== ENCOUNTER 2021-03-15 10:18 | Outpatient (CLI) | payer MEDICARE, OTHER | END 2021-03-15 10:19 | disposition home or self-care (01) | LOC: CSHWCC 10:18 | PROVIDERS: ATTEND Nurse Practitioner Family | DX: L97.823 Non-pressure chronic ulcer of other part of left lower leg with necrosis of muscle (principal); R60.0 Localized edema; L59.8 Other specified disorders of the skin and subcutaneous tissue related to radiation; L08.89 Other specified local infections of the skin and subcutaneous tissue; B96.89 Other specified bacterial agents as the cause of diseases classified elsewhere; E78.2 Mixed hyperlipidemia; F33.9 Major depressive disorder, recurrent, unspecified; I10 Essential (primary) hypertension; M12.9 Arthropathy, unspecified; Y84.2 Radiological procedure and radiotherapy as the cause of abnormal reaction of the patient, or of later complication, without mention of misadventure at the time of the procedure; Z85.828 Personal history of other malignant neoplasm of skin | CPT/HCPCS: 87070; 87077; 87186; 87205 ==

== ENCOUNTER 2021-03-22 12:44 | Outpatient (CLI) | payer MEDICARE, OTHER | END 2021-03-22 12:45 | disposition home or self-care (01) | LOC: CSHWCC 12:44 | PROVIDERS: ATTEND Nurse Practitioner Family | DX: I87.312 Chronic venous hypertension (idiopathic) with ulcer of left lower extremity (principal); L97.821 Non-pressure chronic ulcer of other part of left lower leg limited to breakdown of skin; E78.2 Mixed hyperlipidemia; F33.9 Major depressive disorder, recurrent, unspecified; R60.0 Localized edema; L08.89 Other specified local infections of the skin and subcutaneous tissue; B96.89 Other specified bacterial agents as the cause of diseases classified elsewhere; L59.8 Other specified disorders of the skin and subcutaneous tissue related to radiation; L97.823 Non-pressure chronic ulcer of other part of left lower leg with necrosis of muscle; M12.9 Arthropathy, unspecified; Y84.2 Radiological procedure and radiotherapy as the cause of abnormal reaction of the patient, or of later complication, without mention of misadventure at the time of the procedure; Z85.828 Personal history of other malignant neoplasm of skin | CPT/HCPCS: 11042; 99213; G0463 ==

== ENCOUNTER 2021-03-29 11:05 | Outpatient (CLI) | payer MEDICARE, OTHER | END 2021-03-29 11:06 | disposition home or self-care (01) | LOC: CSHWCC 11:05 | PROVIDERS: ATTEND Nurse Practitioner Family | DX: L97.823 Non-pressure chronic ulcer of other part of left lower leg with necrosis of muscle (principal); R60.0 Localized edema; L59.8 Other specified disorders of the skin and subcutaneous tissue related to radiation; E78.2 Mixed hyperlipidemia; F33.9 Major depressive disorder, recurrent, unspecified; I10 Essential (primary) hypertension; Y84.2 Radiological procedure and radiotherapy as the cause of abnormal reaction of the patient, or of later complication, without mention of misadventure at the time of the procedure; Z85.828 Personal history of other malignant neoplasm of skin ==

== ENCOUNTER 2021-04-05 11:38 | Outpatient (CLI) | payer MEDICARE, OTHER | END 2021-04-05 11:39 | disposition home or self-care (01) | LOC: CSHWCC 11:38 | PROVIDERS: ATTEND Nurse Practitioner Family | DX: L97.823 Non-pressure chronic ulcer of other part of left lower leg with necrosis of muscle (principal); R60.0 Localized edema; I87.312 Chronic venous hypertension (idiopathic) with ulcer of left lower extremity; L97.321 Non-pressure chronic ulcer of left ankle limited to breakdown of skin | CPT/HCPCS: 97139; G0463; 99213 ==

== ENCOUNTER 2021-04-12 11:15 | Outpatient (CLI) | payer MEDICARE, OTHER | END 2021-04-12 11:16 | disposition home or self-care (01) | LOC: CSHWCC 11:15 | PROVIDERS: ATTEND Nurse Practitioner Family | DX: I87.312 Chronic venous hypertension (idiopathic) with ulcer of left lower extremity (principal); L97.823 Non-pressure chronic ulcer of other part of left lower leg with necrosis of muscle; R60.0 Localized edema; L97.321 Non-pressure chronic ulcer of left ankle limited to breakdown of skin ==

== ENCOUNTER 2021-04-19 09:57 | Outpatient (CLI) | payer MEDICARE, OTHER | END 2021-04-19 09:58 | disposition home or self-care (01) | LOC: CSHWCC 09:57 | PROVIDERS: ATTEND Nurse Practitioner Family | DX: L97.929 Non-pressure chronic ulcer of unspecified part of left lower leg with unspecified severity (principal); R60.0 Localized edema | CPT/HCPCS: 11042 ==

== ENCOUNTER 2021-04-26 11:10 | Outpatient (CLI) | payer MEDICARE | END 2021-04-26 11:11 | disposition home or self-care (01) | LOC: CSHWCC 11:10 | PROVIDERS: ATTEND Nurse Practitioner Family | DX: L97.823 Non-pressure chronic ulcer of other part of left lower leg with necrosis of muscle (principal); R60.0 Localized edema; L59.8 Other specified disorders of the skin and subcutaneous tissue related to radiation; E78.2 Mixed hyperlipidemia; F33.9 Major depressive disorder, recurrent, unspecified; I10 Essential (primary) hypertension; Y84.2 Radiological procedure and radiotherapy as the cause of abnormal reaction of the patient, or of later complication, without mention of misadventure at the time of the procedure; Z85.828 Personal history of other malignant neoplasm of skin ==

== ENCOUNTER 2021-05-03 11:21 | Outpatient (CLI) | payer MEDICARE, OTHER | END 2021-05-03 11:22 | disposition home or self-care (01) | LOC: CSHWCC 11:21 | PROVIDERS: ATTEND Nurse Practitioner Family | DX: L97.823 Non-pressure chronic ulcer of other part of left lower leg with necrosis of muscle (principal); R60.0 Localized edema | CPT/HCPCS: 11042 ==

== ENCOUNTER 2021-06-07 10:05 | Outpatient (CLI) | payer MEDICARE | END 2021-06-07 10:06 | disposition home or self-care (01) | LOC: CSHWCC 10:05 | PROVIDERS: ATTEND Nurse Practitioner Family | DX: L97.823 Non-pressure chronic ulcer of other part of left lower leg with necrosis of muscle (principal); R60.0 Localized edema; L59.8 Other specified disorders of the skin and subcutaneous tissue related to radiation; E78.2 Mixed hyperlipidemia; F33.9 Major depressive disorder, recurrent, unspecified; I10 Essential (primary) hypertension; Y84.2 Radiological procedure and radiotherapy as the cause of abnormal reaction of the patient, or of later complication, without mention of misadventure at the time of the procedure; Z85.828 Personal history of other malignant neoplasm of skin | CPT/HCPCS: 11042 ==

== ENCOUNTER 2021-06-28 11:42 | Outpatient (CLI) | payer MEDICARE | END 2021-06-28 11:43 | disposition home or self-care (01) | LOC: CSHWCC 11:42 | PROVIDERS: ATTEND Nurse Practitioner Family | DX: L97.823 Non-pressure chronic ulcer of other part of left lower leg with necrosis of muscle (principal); L59.8 Other specified disorders of the skin and subcutaneous tissue related to radiation; R60.0 Localized edema; E78.2 Mixed hyperlipidemia; F33.9 Major depressive disorder, recurrent, unspecified; I10 Essential (primary) hypertension; Y84.2 Radiological procedure and radiotherapy as the cause of abnormal reaction of the patient, or of later complication, without mention of misadventure at the time of the procedure; Z85.828 Personal history of other malignant neoplasm of skin | CPT/HCPCS: 99213; G0463 ==

== ENCOUNTER 2021-07-05 11:36 | Outpatient (CLI) | payer MEDICARE, OTHER | END 2021-07-05 11:37 | disposition home or self-care (01) | LOC: CSHWCC 11:36 | PROVIDERS: ATTEND Nurse Practitioner Family | DX: L97.823 Non-pressure chronic ulcer of other part of left lower leg with necrosis of muscle (principal); R60.0 Localized edema | CPT/HCPCS: 97139; G0463; 99213 ==

== ENCOUNTER 2021-07-12 10:52 | Outpatient (CLI) | payer MEDICARE | END 2021-07-12 10:53 | disposition home or self-care (01) | LOC: CSHWCC 10:52 | PROVIDERS: ATTEND Nurse Practitioner Family | DX: L97.823 Non-pressure chronic ulcer of other part of left lower leg with necrosis of muscle (principal); R60.0 Localized edema | CPT/HCPCS: 11042 ==

== ENCOUNTER 2021-07-19 10:38 | Outpatient (CLI) | payer MEDICARE | END 2021-07-19 10:39 | disposition home or self-care (01) | LOC: CSHWCC 10:38 | PROVIDERS: ATTEND Nurse Practitioner Family | DX: L97.823 Non-pressure chronic ulcer of other part of left lower leg with necrosis of muscle (principal); R60.0 Localized edema; L59.8 Other specified disorders of the skin and subcutaneous tissue related to radiation; E78.2 Mixed hyperlipidemia; I10 Essential (primary) hypertension; F33.9 Major depressive disorder, recurrent, unspecified; Y84.2 Radiological procedure and radiotherapy as the cause of abnormal reaction of the patient, or of later complication, without mention of misadventure at the time of the procedure; Z85.828 Personal history of other malignant neoplasm of skin | CPT/HCPCS: 97139; G0463; 99213 ==

== ENCOUNTER 2021-07-26 13:57 | Outpatient (CLI) | payer MEDICARE, OTHER | END 2021-07-26 13:58 | disposition home or self-care (01) | LOC: CSHWCC 13:57 | PROVIDERS: ATTEND Nurse Practitioner Family | DX: L97.823 Non-pressure chronic ulcer of other part of left lower leg with necrosis of muscle (principal); R60.0 Localized edema | CPT/HCPCS: 11042 ==

== ENCOUNTER 2021-08-03 12:59 | Outpatient (CLI) | payer MEDICARE, OTHER | END 2021-08-03 13:00 | disposition home or self-care (01) | LOC: CSHWCC 12:59 | PROVIDERS: ATTEND Nurse Practitioner Family | DX: L97.823 Non-pressure chronic ulcer of other part of left lower leg with necrosis of muscle (principal); R60.0 Localized edema | CPT/HCPCS: 97139; G0463; 99213 ==

== ENCOUNTER 2021-08-10 12:51 | Outpatient (CLI) | payer MEDICARE, OTHER | END 2021-08-10 12:52 | disposition home or self-care (01) | LOC: CSHWCC 12:51 | PROVIDERS: ATTEND Nurse Practitioner Family | DX: L97.823 Non-pressure chronic ulcer of other part of left lower leg with necrosis of muscle (principal); R60.0 Localized edema | CPT/HCPCS: 97139; G0463; 99213 ==

== ENCOUNTER 2021-08-16 10:39 | Outpatient (CLI) | payer MEDICARE, OTHER | END 2021-08-16 10:40 | disposition home or self-care (01) | LOC: CSHWCC 10:39 | PROVIDERS: ATTEND Nurse Practitioner Family | DX: L97.823 Non-pressure chronic ulcer of other part of left lower leg with necrosis of muscle (principal); R60.0 Localized edema | CPT/HCPCS: 97139; G0463; 99213 ==

== ENCOUNTER 2021-08-23 10:20 | Outpatient (CLI) | payer MEDICARE, OTHER | END 2021-08-23 10:21 | disposition home or self-care (01) | LOC: CSHWCC 10:20 | PROVIDERS: ATTEND Nurse Practitioner Family | DX: L97.823 Non-pressure chronic ulcer of other part of left lower leg with necrosis of muscle (principal); R60.0 Localized edema; L59.8 Other specified disorders of the skin and subcutaneous tissue related to radiation; F33.9 Major depressive disorder, recurrent, unspecified; E78.2 Mixed hyperlipidemia; I10 Essential (primary) hypertension; Y84.2 Radiological procedure and radiotherapy as the cause of abnormal reaction of the patient, or of later complication, without mention of misadventure at the time of the procedure; Z85.828 Personal history of other malignant neoplasm of skin | CPT/HCPCS: 11042; 97607 ==

== ENCOUNTER 2021-08-30 10:44 | Outpatient (CLI) | payer MEDICARE, OTHER | END 2021-08-30 10:45 | disposition home or self-care (01) | LOC: CSHWCC 10:44 | PROVIDERS: ATTEND Nurse Practitioner Family | DX: L97.823 Non-pressure chronic ulcer of other part of left lower leg with necrosis of muscle (principal); L59.8 Other specified disorders of the skin and subcutaneous tissue related to radiation; R60.0 Localized edema; E78.2 Mixed hyperlipidemia; F33.9 Major depressive disorder, recurrent, unspecified; I10 Essential (primary) hypertension; Y84.2 Radiological procedure and radiotherapy as the cause of abnormal reaction of the patient, or of later complication, without mention of misadventure at the time of the procedure; Z85.828 Personal history of other malignant neoplasm of skin | CPT/HCPCS: 29581; 97607 ==

== ENCOUNTER → 2021-09-02 | Outpatient (CLI) | payer MEDICARE | LOC: CSHWCC 09:50 | PROVIDERS: ATTEND Nurse Practitioner Family | DX: L97.823 Non-pressure chronic ulcer of other part of left lower leg with necrosis of muscle (principal); R60.0 Localized edema | CPT/HCPCS: 29581 ==

== ENCOUNTER 2021-09-07 11:41 | Outpatient (CLI) | payer MEDICARE | END 2021-09-07 11:42 | disposition home or self-care (01) | LOC: CSHWCC 11:41 | PROVIDERS: ATTEND Nurse Practitioner Family | DX: L97.823 Non-pressure chronic ulcer of other part of left lower leg with necrosis of muscle (principal); R60.0 Localized edema ==

== ENCOUNTER 2021-09-13 10:05 | Outpatient (CLI) | payer MEDICARE, OTHER | END 2021-09-13 10:06 | disposition home or self-care (01) | LOC: CSHWCC 10:05 | PROVIDERS: ATTEND Nurse Practitioner Family | DX: L97.823 Non-pressure chronic ulcer of other part of left lower leg with necrosis of muscle (principal); R60.0 Localized edema ==

== ENCOUNTER 2021-09-15 10:57 | Outpatient (CLI) | payer MEDICARE, OTHER | END 2021-09-15 10:58 | disposition home or self-care (01) | LOC: CSHWCC 10:57 | PROVIDERS: ATTEND Nurse Practitioner Family | DX: L97.823 Non-pressure chronic ulcer of other part of left lower leg with necrosis of muscle (principal); R60.0 Localized edema ==

== ENCOUNTER 2021-09-20 10:56 | Outpatient (CLI) | payer MEDICARE, OTHER | END 2021-09-20 10:57 | disposition home or self-care (01) | LOC: CSHWCC 10:56 | PROVIDERS: ATTEND Nurse Practitioner Family | DX: L97.823 Non-pressure chronic ulcer of other part of left lower leg with necrosis of muscle (principal); R60.0 Localized edema ==

== ENCOUNTER 2021-09-23 10:51 | Outpatient (CLI) | payer MEDICARE, OTHER | END 2021-09-23 10:52 | disposition home or self-care (01) | LOC: CSHWCC 10:51 | PROVIDERS: ATTEND Nurse Practitioner Family | DX: L97.823 Non-pressure chronic ulcer of other part of left lower leg with necrosis of muscle (principal); R60.0 Localized edema | CPT/HCPCS: 29581 ==

== ENCOUNTER 2021-09-30 09:59 | Outpatient (CLI) | payer MEDICARE, OTHER | END 2021-09-30 10:00 | disposition home or self-care (01) | LOC: CSHWCC 09:59 | PROVIDERS: ATTEND Nurse Practitioner Family | DX: L97.823 Non-pressure chronic ulcer of other part of left lower leg with necrosis of muscle (principal); R60.0 Localized edema | CPT/HCPCS: 97607 ==

== ENCOUNTER 2021-10-06 08:30 | Outpatient (CLI) | payer MEDICARE, OTHER | END 2021-10-06 08:31 | disposition home or self-care (01) | LOC: CSHWCC 08:30 | PROVIDERS: ATTEND Nurse Practitioner Family | DX: L97.823 Non-pressure chronic ulcer of other part of left lower leg with necrosis of muscle (principal); R60.0 Localized edema | CPT/HCPCS: 97607 ==

== ENCOUNTER 2021-10-13 15:41 | Outpatient (CLI) | payer MEDICARE, OTHER | END 2021-10-13 15:42 | disposition home or self-care (01) | LOC: CSHWCC 15:41 | PROVIDERS: ATTEND Nurse Practitioner Family | DX: L97.823 Non-pressure chronic ulcer of other part of left lower leg with necrosis of muscle (principal); R60.0 Localized edema ==

== ENCOUNTER 2021-10-20 15:03 | Outpatient (CLI) | payer MEDICARE, OTHER | END 2021-10-20 15:04 | disposition home or self-care (01) | LOC: CSHWCC 15:03 | PROVIDERS: ATTEND Nurse Practitioner Family | DX: L97.823 Non-pressure chronic ulcer of other part of left lower leg with necrosis of muscle (principal); R60.0 Localized edema ==

== ENCOUNTER 2021-10-27 11:22 | Outpatient (CLI) | payer MEDICARE | END 2021-10-27 11:23 | disposition home or self-care (01) | LOC: CSHWCC 11:22 | PROVIDERS: ATTEND Preventive Medicine Undersea and Hyperbaric Medicine | DX: L97.823 Non-pressure chronic ulcer of other part of left lower leg with necrosis of muscle (principal); R60.0 Localized edema | CPT/HCPCS: 11042; 97607 ==

== ENCOUNTER 2021-11-03 13:22 | Outpatient (CLI) | payer MEDICARE | END 2021-11-03 13:23 | disposition home or self-care (01) | LOC: CSHWCC 13:22 | PROVIDERS: ATTEND Preventive Medicine Undersea and Hyperbaric Medicine | DX: L97.823 Non-pressure chronic ulcer of other part of left lower leg with necrosis of muscle (principal); R60.0 Localized edema ==

== ENCOUNTER 2021-11-10 12:57 | Outpatient (CLI) | payer MEDICARE | END 2021-11-10 12:58 | disposition home or self-care (01) | LOC: CSHWCC 12:57 | PROVIDERS: ATTEND Preventive Medicine Undersea and Hyperbaric Medicine | DX: L97.823 Non-pressure chronic ulcer of other part of left lower leg with necrosis of muscle (principal); R60.0 Localized edema ==